=== PATIENT | female | born 1940 | race Caucasian/White ===

== ENCOUNTER → 2019-05-01 | Outpatient (CLI) | payer OTHER ==
[~2019-05-01] MED LIST: ANTIVERT25 MG PO; DARVOCET N 1001 TAB PO; MOTRIN800 MG PO
== END | disposition home or self-care (01) ==
LOC: RAD 12:20
DX: M43.16 Spondylolisthesis, lumbar region (principal)

== ENCOUNTER 2023-07-07 05:57 | Emergency (ER) | payer OTHER ==
[~2023-07-07] VITALS: Wt 56.8 kg
[2023-07-07] MEDS ORDERED: ASPIRIN ADULT L81 M1 PO (06:00)
[2023-07-07] MEDS ORDERED: LIPITOR40 MG PO (06:02)
[2023-07-07 06:58] LABS: BASO % 0.3 % (0.0-1.0); EOS # 0.5 10*3/uL (0.0-0.4); EOS % 6.6 % (1.0-4.0); HEMATOCRIT 41.3 % (37.0-47.0); LYMPH # 1.8 10*3/uL (1.3-4.4); LYMPH % 26.3 % (27.0-41.0); MEAN CELL VOLUME 101.2 fl (81.0-99.0); MEAN CORPUSCULAR HGB 34.6 pg (27.0-31.0); MEAN CORPUSCULAR HGB CONC 34.1 g/dl (33.0-37.0); MEAN PLATELET VOLUME 10.7 fl (9.6-12.3); MONO # 0.4 10*3/uL (0.1-1.0); NEUT # 4.2 10*3/uL (2.3-7.9); NEUT % 60.1 % (47.0-73.0); PLATELET COUNT AUTOMATED 190 10*3/uL (130-400); RED BLOOD COUNT 4.08 10*6/uL (4.10-5.10); RED CELL DISTRI WIDTH 11.7 % (0-14.5)
[2023-07-07 07:08] LABS: ACT PARTIAL THROMBO TIME 24.6 SECONDS (20.0-32.1)
[2023-07-07 07:23] LABS: POTASSIUM 3.9 mmol/L (3.4-5.1); TOTAL PROTEIN 7.1 gm/dL (6.0-8.0)
== END 2023-07-07 11:16 | disposition home or self-care (01) ==
LOC: ED 05:57
PROVIDERS: Family Medicine
DX: R55 Syncope and collapse (principal); N20.1 Calculus of ureter; M54.50 Low back pain, unspecified; E78.5 Hyperlipidemia, unspecified; E78.00 Pure hypercholesterolemia, unspecified; I25.10 Atherosclerotic heart disease of native coronary artery without angina pectoris; Z90.49 Acquired absence of other specified parts of digestive tract; Z98.890 Other specified postprocedural states; S22.088A Other fracture of T11-T12 vertebra, initial encounter for closed fracture; W19.XXXA Unspecified fall, initial encounter; Y93.89 Activity, other specified; Y92.89 Other specified places as the place of occurrence of the external cause; Y99.8 Other external cause status

== ENCOUNTER 2023-08-02 11:05 | Emergency (ER) | payer OTHER ==
[~2023-08-02] VITALS: Ht 152.4 cm; Wt 52.2 kg
[~2023-08-02 11:05] MED LIST changes: +ASPIRIN ADULT L81 M1 PO; +LIPITOR40 MG PO
[2023-08-02 12:39] LABS: HEMATOCRIT 35.7 % (37.0-47.0); MEAN CELL VOLUME 105.6 fl (81.0-99.0); MEAN CORPUSCULAR HGB 33.4 pg (27.0-31.0); MEAN CORPUSCULAR HGB CONC 31.7 g/dl (33.0-37.0); MEAN PLATELET VOLUME 10.9 fl (9.6-12.3); PLATELET COUNT AUTOMATED 193 10*3/uL (130-400); RED BLOOD COUNT 3.38 10*6/uL (4.10-5.10); RED CELL DISTRI WIDTH 12.5 % (0-14.5); WHITE BLOOD COUNT 15.7 10*3/uL (4.8-10.8)
[2023-08-02 12:43] LABS: MANUAL DIFF REFLEX YES
[2023-08-02 12:50] LABS: ACT PARTIAL THROMBO TIME 30.1 SECONDS (20.0-32.1)
[2023-08-02 12:58] LABS: POTASSIUM 2.9 mmol/L (3.4-5.1); TOTAL PROTEIN 6.5 gm/dL (6.0-8.0)
[2023-08-02 13:26] LABS: POLYCHROMASIA SLIGHT; TOTAL CELLS COUNTED 100 #CELLS
[2023-08-02 13:27] LABS: BURR CELLS FEW; PLATELET SUFFICIENCY NORMAL (NORMAL)
[2023-08-02 15:48] LABS: BILIRUBIN 1+ (Negative); BLOOD 2+ (Negative); CLARITY Cloudy (Clear); COLOR Dark Yellow (Yellow); GLUCOSE Negative (Negative); KETONE Trace (Negative); LEUKO ESTERASE 2+ (Negative); NITRITE Positive (Negative)
[2023-08-02 15:57] LABS: BACTERIA 4+; EPITHELIAL CELLS 0-2; WBC 41-50 wbc/hpf (0-5)
[2023-08-03 06:30] LABS: TOTAL PROTEIN 5.7 gm/dL (6.0-8.0)
[2023-08-03 06:40] LABS: POTASSIUM 4.1 mmol/L (3.4-5.1)
[2023-08-03 06:43] LABS: HEMATOCRIT 34.2 % (37.0-47.0); MEAN CELL VOLUME 104.9 fl (81.0-99.0); MEAN CORPUSCULAR HGB 32.8 pg (27.0-31.0); MEAN CORPUSCULAR HGB CONC 31.3 g/dl (33.0-37.0); MEAN PLATELET VOLUME 11.5 fl (9.6-12.3); PLATELET COUNT AUTOMATED 138 10*3/uL (130-400); RED BLOOD COUNT 3.26 10*6/uL (4.10-5.10); RED CELL DISTRI WIDTH 12.7 % (0-14.5); WHITE BLOOD COUNT 12.1 10*3/uL (4.8-10.8)
[2023-08-03 06:45] LABS: MANUAL DIFF REFLEX YES
[2023-08-03 07:36] LABS: BURR CELLS MODERATE; OVALOCYTES FEW; PLATELET SUFFICIENCY NORMAL (NORMAL); POLYCHROMASIA SLIGHT; TOTAL CELLS COUNTED 100 #CELLS
== END 2023-08-03 18:38 | disposition short-term general hospital (02) ==
LOC: ED 11:05
PROVIDERS: Emergency Medicine
DX: A41.9 Sepsis, unspecified organism (principal); N39.0 Urinary tract infection, site not specified; N17.9 Acute kidney failure, unspecified; I50.9 Heart failure, unspecified; E87.6 Hypokalemia; E83.42 Hypomagnesemia; E87.20 Acidosis, unspecified; N20.0 Calculus of kidney; E78.00 Pure hypercholesterolemia, unspecified; I25.10 Atherosclerotic heart disease of native coronary artery without angina pectoris; Z90.49 Acquired absence of other specified parts of digestive tract; Z98.890 Other specified postprocedural states; Z20.822 Contact with and (suspected) exposure to COVID-19; W19.XXXA Unspecified fall, initial encounter

== ENCOUNTER → 2023-08-18 | Outpatient (CLI) | payer OTHER | END | disposition home or self-care (01) | LOC: RAD 14:06 | PROVIDERS: ATTEND Registered Nurse | DX: Z01.818 Encounter for other preprocedural examination (principal); M43.8X4 Other specified deforming dorsopathies, thoracic region ==